=== PATIENT | male | born 1940 | race Caucasian/White ===

== ENCOUNTER 2016-08-07 08:18 | Day surgery (SDC) | payer OTHER ==
[~2016-08-07] VITALS: Ht 177.8 cm; Wt 69.4 kg
[~2016-08-07 08:18] MED LIST: DAILY VITAMIN1 EAC4 PO; LO-DOSE ASPIRIN81 M2 PO; SIMVASTATIN40 MG PO; TRIAMTERENE-HC1 EACH PO
== END 2016-08-07 18:55 | disposition home or self-care (01) ==
LOC: CATH 08:18
DX: I35.8 Other nonrheumatic aortic valve disorders (principal); R93.1 Abnormal findings on diagnostic imaging of heart and coronary circulation; I10 Essential (primary) hypertension; I25.10 Atherosclerotic heart disease of native coronary artery without angina pectoris; E78.5 Hyperlipidemia, unspecified; H91.90 Unspecified hearing loss, unspecified ear
CPT/HCPCS: C1769; C1887; C1894; J1644; J2250; J3010; J7050